=== PATIENT | female | born 1975 | race Caucasian/White ===

== ENCOUNTER 2022-05-10 21:25 | Emergency (ER) | payer OTHER, BC ==
[2022-05-10] MEDS: Bupivacaine 0.5% 30 ML SDV INJECT STA (22:45)
[2022-05-10] MEDS: Lidocaine 1% 10 ML MDV INJECT ONE (22:45)
[2022-05-10] MEDS: Ibuprofen 200 MG Tab PO STA (22:58)
== END 2022-05-10 23:11 | disposition home or self-care (01) ==
LOC: VM.ED 21:25
DX: S92.511A Displaced fracture of proximal phalanx of right lesser toe(s), initial encounter for closed fracture (principal); W22.8XXA Striking against or struck by other objects, initial encounter
CPT/HCPCS: 73630-RT; 99283; A9270-GY; J3490

== ENCOUNTER 2022-07-13 07:24 | Day surgery (SDC) | payer BC ==
[~2022-07-13 07:24] MED LIST: Lactated Ringers 1,000 ML IV SCH
[2022-07-13] MEDS: Lactated Ringers 1,000 ML IV SCH (07:47)
[2022-07-13] MEDS ORDERED: Propofol 200 MG/20 ML SDV ONE ×2 (07:49→09:55)
[2022-07-13] MEDS ORDERED: fentaNYL 100 MCG/2 ML SDV ONE (07:49)
[2022-07-13] MEDS ORDERED: Ondansetron 4 MG/2 ML SDV ONE (09:00)
== END 2022-07-13 11:20 | disposition home or self-care (01) ==
LOC: VM.SDS 07:24
PROVIDERS: ATTEND Family Medicine
DX: Z12.11 Encounter for screening for malignant neoplasm of colon (principal); D12.6 Benign neoplasm of colon, unspecified; M54.50 Low back pain, unspecified; G89.29 Other chronic pain; M20.10 Hallux valgus (acquired), unspecified foot; Z98.890 Other specified postprocedural states; Z79.899 Other long term (current) drug therapy
CPT/HCPCS: 00812; J2405; J2704; J3010; J7120

== ENCOUNTER 2023-12-13 16:04 | Emergency (ER) | payer OTHER, BC ==
[2023-12-13] MEDS: Lidocaine 2% 5 ML SDV INJECT ONE (17:23)
[2023-12-13] MEDS: Diphtheria,Pertussis(Acell),Tetanus Vaccine 0.5 ML Syringe IM ONE (18:01)
== END 2023-12-13 18:05 | disposition home or self-care (01) ==
LOC: VM.ED 16:04
DX: S91.114A Laceration without foreign body of right lesser toe(s) without damage to nail, initial encounter (principal); S91.111A Laceration without foreign body of right great toe without damage to nail, initial encounter; Z23 Encounter for immunization; W22.8XXA Striking against or struck by other objects, initial encounter
CPT/HCPCS: 12001; 73660-RT; 90471; 90715; 99283; 99283-25; J3490